=== PATIENT | female | born 1955 | race Caucasian/White ===

== ENCOUNTER → 2017-02-25 | Outpatient (CLI) | payer OTHER ==
[~2017-02-25] MED LIST: ATIVAN PO; ATIVAN2 MG PO; CELEXA20 M1 PO; FISH OIL 1,0001 CAP PO; K-DUR20 ME1 PO; LORAZEPAM1 MG PO; MAXZIDE 75/50 T1 TAB PO; NEURONTIN300 MG PO; NO MEDICATIONS; NORVASC PO; PERCOCET 5-3251 TAB PO; PERCOCET5/325 PO; SEROQUEL XR200 MG PO; VOLTAREN75 MG PO
--- NOTE | ~2017-02-25 | US85 ---
[facility] A Service of [facility] & [facility] RADIOLOGY TEXT RESULTS PATIENT: STEPHANIE QUISPE LOCATION: CNIV : 55 UNIT #: [id number] AGE: [address]: Larisa Lane MD SEX: F ORDER DR: [id number] [facility] [address] [place], [place] [address] [id number] O MR#: [id number] Acc #: [id number] NAME: STEPHANIE QUISPE : 1955 SEX: F STUDY DATE/TIME: 02/25/2017 11:56 UNIT: CNIV ROOM: STUDY DESCRIPTION: LE Veins Unilat or Ltd Stdy Attending Physician: Larisa Lane M.D. Referring Physician: Larisa Lane M.D. Ordering Physician: Samuel Lane M.D. Primary Care Physician: Larisa Lane M.D. MEDICAL IMAGING REPORT This report is preliminary unless electronic signature is present EXAM Right lower extremity venous Doppler, 02/25/2017 HISTORY Right leg pain and swelling FINDINGS The right common femoral vein, femoral vein, popliteal vein, tibial veins demonstrate patency and compressibility. There is phasic and spontaneous flow with respiration and augmentation. Proximal distal greater saphenous vein is patent and compressible. IMPRESSION No evidence of right lower extremity deep vein thrombosis. Dictated by... Deena Hernandez M.D. THIS IS AN ELECTRONICALLY VERIFIED REPORT Deena Hernandez M.D. at 03/05/2017 8:00 AM Radha TD: 02/25/2017 19:25 JOB #: [id number] MEDICAL IMAGING REPORT Page 1 of 1 COPY
== END | disposition home or self-care (01) ==
LOC: CNIV 11:16
DX: M79.89 Other specified soft tissue disorders (principal); M79.604 Pain in right leg
CPT/HCPCS: 93971